=== PATIENT | female | born 1960 | race Caucasian/White ===

== ENCOUNTER 2017-09-19 16:20 | Emergency (ER) | payer OTHER ==
[~2017-09-19] VITALS: Ht 154.9 cm; Wt 89.1 kg
[~2017-09-19 16:20] MED LIST: FENO145T PO; GEMF600T3 PO
[2017-09-19] MEDS ORDERED: SODIUM CHLORIDE 0.9% 1,000 ML IV ONE (16:38)
[2017-09-19 17:04] LABS: EOSINOPHILS # (AUTO) 0.04 K/uL (0.00-0.70); EOSINOPHILS % (AUTO) 0.53 % (1.0-6.0); HEMATOCRIT 38.6 % (36-46); HEMOGLOBIN 12.9 g/dL (12.0-16.0); LYMPHOCYTES # (AUTO) 1.3 K/uL (1.0-4.8); LYMPHOCYTES % (AUTO) 18.7 % (22.0-44.0); MEAN CORPUSCULAR HEMOGLOBIN 29.5 pg (26.0-34.0); MEAN CORPUSCULAR HGB CONC 33.4 G/dL (31.0-37.0); MEAN CORPUSCULAR VOLUME 88 fL (80-100); MONOCYTES # (AUTO) 0.4 K/uL (0.1-1.0); MONOCYTES % (AUTO) 6.3 % (2.0-9.0); NEUTROPHILS % (AUTO) 74.4 % (40.0-70.0); PLATELET COUNT (AUTO) 146 K/uL (150-450); RED BLOOD CELL COUNT(AUTO) 4.36 MIL/uL (4.00-5.20); RED CELL DISTRIBUTION WIDTH 14.1 % (11.5-14.5); WHITE BLOOD COUNT (AUTO) 6.7 K/uL (4.5-11.0)
[2017-09-19 17:15] LABS: ANION GAP 9 mmol/L (8-16); CALCIUM, TOTAL 8.7 mg/dL (8.8-10.5); CARBON DIOXIDE 28 mmol/L (22-29); CHLORIDE 103 mmol/L (98-107); CREATININE 0.88 mg/dL (0.60-1.30); GLOMERULAR FILTR. RATE CALC > 60 mL/min (>60); POTASSIUM 4.1 mmol/L (3.5-5.1); SODIUM SERUM 140 mmol/L (136-145); UREA NITROGEN, BLOOD 11 mg/dL (7-18)
[2017-09-19 17:41] LABS: ALANINE AMINOTRANSFERASE 65 U/L (12-78); ALBUMIN 3.6 g/dL (3.4-5.0); ASPARTATE AMINOTRANSFERASE 82 U/L (15-37); BILIRUBIN,TOTAL 0.5 mg/dL (0.1-1.0); CREATINE KINASE MB < 0.5 ng/mL (0-5); CREATINE KINASE, TOTAL 95 U/L (26-192); TOTAL PROTEIN, SERUM 6.7 g/dL (6.4-8.2)
[2017-09-19 18:11] LABS: GLUCOSE, URINE (UA) NEGATIVE (NEGATIVE); KETONES,URINE TRACE mg/dL (NEGATIVE); LEUKOCYTE ESTERASE ,URINE MODERATE (NEGATIVE); OCCULT BLOOD,URINE NEGATIVE (NEGATIVE); PROTEIN,URINE NEGATIVE (NEGATIVE)
[2017-09-19 18:25] LABS: ADD UA MICROSCOPIC YES; APPEARANCE,URINE SLIGHTLY CLOUDY (CLEAR); RBC,URINE None Seen /HPF (0-2); SQUAMOUS EPITHELIAL CELL,UR Moderate /LPF (None Seen)
[2017-09-19 19:30] VITALS: BP 124/80
[2017-10-14] MEDS ORDERED: HYDR25TA PO (11:56)
[2017-10-14] MEDS ORDERED: SIMV-261 PO (11:56)
[2017-10-14] MEDS ORDERED: METF850T2 PO (11:56)
[2017-10-14] MEDS ORDERED: LISI-660 PO (11:56)
[2017-10-14] MEDS ORDERED: OMEP20 PO (11:56)
[2017-10-14] MEDS ORDERED: ASPI81 PO (11:56)
[2017-10-14] MEDS ORDERED: GABA-531 PO (11:56)
[2017-10-21] MEDS ORDERED: HYDR-309 PO (09:48)
[2017-10-21] MEDS ORDERED: DSS100 PO (09:48)
== END 2017-09-19 20:09 | disposition home or self-care (01) ==
LOC: EMS 16:21
DX: K52.9 Noninfective gastroenteritis and colitis, unspecified (principal); E86.0 Dehydration; N39.0 Urinary tract infection, site not specified; E11.9 Type 2 diabetes mellitus without complications; I10 Essential (primary) hypertension; F17.210 Nicotine dependence, cigarettes, uncomplicated
CPT/HCPCS: 36415; 80053; 81001; 82550; 82553; 82962; 83690; 84484; 85025; 87077; 87086; 87186; 93005; 96360; 99285; J7030

== ENCOUNTER 2017-11-26 06:37 | Day surgery (SDC) | payer OTHER ==
[~2017-11-26] VITALS: Ht 160 cm; Wt 87.3 kg
[~2017-11-26 06:37] MED LIST changes: +ASPI81 PO; +CeFAZolin 2 GM/DEXTROSE 0 ML IV ONE; +DSS100 PO; -FENO145T PO; +GABA-531 PO; -GEMF600T3 PO; +HYDR-309 PO; +HYDR25TA PO; +METF850T2 PO; +OMEP20 PO; +RINGERS SOLUTION,LACTATED 1,000 ML IV ONE; +SIMV-261 PO
[2017-11-26] MEDS ORDERED: PROPOFOL 1% 20 ML VIAL IVP ONE (06:38)
[2017-11-26] MEDS ORDERED: LIDOCAINE HCL/PF 2% 5 ML VIAL IM ONE (06:38)
[2017-11-26] MEDS ORDERED: FentaNYL CITRATE-PF 100 MCG/2 ML VIAL IVP ONE (06:38)
[2017-11-26] MEDS ORDERED: MIDAZOLAM HCL 2 MG/2 ML VIAL IVP ONE (06:38)
[2017-11-26] MEDS ORDERED: RINGERS SOLUTION,LACTATED 1,000 ML IV ONE (07:00)
[2017-11-26] MEDS ORDERED: CeFAZolin 2 GM/DEXTROSE 50 ML IV ONE (07:00)
[2017-11-26 07:23] LABS: GLUCOMETER DEV NAME(LOC) SDS 5; GLUCOSE,POINT OF CARE 132 MG/DL (70-110)
[2017-11-26] MEDS ORDERED: FentaNYL CITRATE-PF 100 MCG/2 ML VIAL ONE (09:42)
[2017-11-26] MEDS ORDERED: MEPERIDINE-PF 25 MG/ML SYRINGE IVP PRN (09:45)
[2017-11-26] MEDS ORDERED: FentaNYL CITRATE-PF 100 MCG/2 ML VIAL IVP PRN (09:45)
[2017-11-26] MEDS ORDERED: OxyCODONE HCL/ACETAMINOPHEN 5-325 MG TABLET PO STA (10:18)
[2017-11-26] MEDS ORDERED: OxyCODONE HCL/ACETAMINOPHEN 5-325 MG TABLET ONE (10:25)
== END 2017-11-26 11:25 | disposition home or self-care (01) ==
LOC: SURGERY 06:37
PROVIDERS: ATTEND Orthopaedic Surgery
DX: M25.661 Stiffness of right knee, not elsewhere classified (principal); E66.3 Overweight; F41.9 Anxiety disorder, unspecified; K21.9 Gastro-esophageal reflux disease without esophagitis; E78.00 Pure hypercholesterolemia, unspecified; E11.9 Type 2 diabetes mellitus without complications; I10 Essential (primary) hypertension; M17.11 Unilateral primary osteoarthritis, right knee; Z96.651 Presence of right artificial knee joint; Z79.84 Long term (current) use of oral hypoglycemic drugs; Z79.82 Long term (current) use of aspirin; Z79.899 Other long term (current) drug therapy; Z87.891 Personal history of nicotine dependence; Z91.013 Allergy to seafood; Z68.34 Body mass index [BMI] 34.0-34.9, adult; Z98.890 Other specified postprocedural states
CPT/HCPCS: 27570; 82962; 93005; J2175; J2250; J2704; J3010; J3490; J7120; J0690

== ENCOUNTER 2019-11-13 12:22 | Emergency (ER) | payer MEDICAID, OTHER ==
[~2019-11-13] VITALS: Ht 170.2 cm; Wt 77.3 kg
[~2019-11-13 12:22] MED LIST changes: +ASPI-728 PO; -ASPI81 PO; -CeFAZolin 2 GM/DEXTROSE 0 ML IV ONE; +HYDR-1475 PO; -HYDR25TA PO; +METF-445 PO; -METF850T2 PO; -RINGERS SOLUTION,LACTATED 1,000 ML IV ONE
[2019-11-13] MEDS ORDERED: LORazepam 1 MG TABLET PO ONE (14:30)
[2019-11-13 15:38] LABS: APPEARANCE,URINE CLEAR (CLEAR); BILIRUBIN,URINE NEGATIVE (NEGATIVE); GLUCOSE, URINE (UA) NEGATIVE (NEGATIVE); KETONES,URINE NEGATIVE (NEGATIVE); LEUKOCYTE ESTERASE ,URINE NEGATIVE (NEGATIVE); NITRATE,URINE NEGATIVE (NEGATIVE); OCCULT BLOOD,URINE NEGATIVE (NEGATIVE); PROTEIN,URINE NEGATIVE (NEGATIVE); UROBILINOGEN,URINE 0.2 mg/dL (<=1.0)
[2019-11-13 16:17] LABS: BASOPHILS % (AUTO) 0.3 % (0.0-2.0); EOSINOPHILS % (AUTO) 1.6 % (1.0-6.0); HEMATOCRIT 33.5 % (36-46); HEMOGLOBIN 10.3 g/dL (12.0-16.0); LYMPHOCYTES # (AUTO) 3.3 K/uL (1.0-4.8); LYMPHOCYTES % (AUTO) 41.7 % (22.0-44.0); MEAN CORPUSCULAR HEMOGLOBIN 22.9 pg (26.0-34.0); MEAN CORPUSCULAR HGB CONC 30.7 G/dL (31.0-37.0); MEAN CORPUSCULAR VOLUME 75 fL (80-100); MONOCYTES # (AUTO) 0.5 K/uL (0.1-1.0); MONOCYTES % (AUTO) 6.5 % (2.0-9.0); NEUTROPHILS # (AUTO) 3.9 K/uL (1.8-7.7); NEUTROPHILS % (AUTO) 49.9 % (40.0-70.0); PLATELET COUNT (AUTO) 265 K/uL (150-450); RED BLOOD CELL COUNT(AUTO) 4.49 MIL/uL (4.00-5.20); RED CELL DISTRIBUTION WIDTH 17.2 % (11.5-14.5)
[2019-11-13 16:27] LABS: ANION GAP 10 mmol/L (8-16); CALCIUM, TOTAL 8.9 mg/dL (8.8-10.5); CARBON DIOXIDE 25 mmol/L (22-29); CHLORIDE 109 mmol/L (98-107); CREATININE 0.68 mg/dL (0.60-1.30); GLOMERULAR FILTR. RATE CALC > 60 mL/min (>60); GLUCOSE,RANDOM 122 mg/dL (70-110); POTASSIUM 4.3 mmol/L (3.5-5.1); SODIUM SERUM 144 mmol/L (136-145); UREA NITROGEN, BLOOD 7 mg/dL (7-18)
[2019-11-13 16:39] LABS: PROTHROMBIN TIME 10.1 SEC (9.4-11.6)
[2019-11-13 16:51] LABS: ALANINE AMINOTRANSFERASE 27 U/L (12-78); ALBUMIN 3.8 g/dL (3.4-5.0); ALKALINE PHOSPHATASE 88 U/L (46-116); ASPARTATE AMINOTRANSFERASE 23 U/L (15-37); B-TYPE NATRIURETIC PEPTIDE 328 pg/mL (0-100); BILIRUBIN,TOTAL 0.4 mg/dL (0.1-1.0); CREATINE KINASE, TOTAL ONLY 109 U/L (26-192); TOTAL PROTEIN, SERUM 7.2 g/dL (6.4-8.2)
[2019-11-13 17:37] VITALS: BP 123/78
== END 2019-11-13 17:54 | disposition home or self-care (01) ==
LOC: EMS 12:24
DX: R05 Cough (principal); T44.995A Adverse effect of other drug primarily affecting the autonomic nervous system, initial encounter; F41.9 Anxiety disorder, unspecified; E78.00 Pure hypercholesterolemia, unspecified; I10 Essential (primary) hypertension; F17.210 Nicotine dependence, cigarettes, uncomplicated; Z79.84 Long term (current) use of oral hypoglycemic drugs; Z79.82 Long term (current) use of aspirin; Z79.899 Other long term (current) drug therapy; Z88.8 Allergy status to other drugs, medicaments and biological substances; Y92.89 Other specified places as the place of occurrence of the external cause
CPT/HCPCS: 93005

== ENCOUNTER 2021-12-24 10:27 | Emergency (ER) | payer MEDICAID, OTHER ==
[~2021-12-24] VITALS: Ht 154.9 cm; Wt 77.3 kg
[~2021-12-24 10:27] MED LIST changes: +ASPI-1450 PO; -ASPI-728 PO; +GABA-1181 PO; -GABA-531 PO; -HYDR-1475 PO; +HYDR25TA2 PO
[2021-12-24 10:45] VITALS: BP 75/51
[2021-12-24] MEDS ORDERED: LIDOCAINE 1% 10 ML VIAL PERC ONE (11:30)
[2021-12-24] MEDS ORDERED: POVIDONE-IODINE 10% 15 ML SOLUTION UD TP ONE (11:45)
[2021-12-24] MEDS ORDERED: AMOX1TAB16 PO (12:28)
== END 2021-12-24 12:57 | disposition home or self-care (01) ==
LOC: EMS 10:29
DX: S61.211A Laceration without foreign body of left index finger without damage to nail, initial encounter (principal); I10 Essential (primary) hypertension; E11.9 Type 2 diabetes mellitus without complications; K21.9 Gastro-esophageal reflux disease without esophagitis; F41.9 Anxiety disorder, unspecified; F17.210 Nicotine dependence, cigarettes, uncomplicated; Z91.013 Allergy to seafood; Z79.899 Other long term (current) drug therapy; Y04.1XXA Assault by human bite, initial encounter; Y93.89 Activity, other specified; Y92.89 Other specified places as the place of occurrence of the external cause; Y99.8 Other external cause status
CPT/HCPCS: 12002; 99283; J3490

== ENCOUNTER 2024-06-10 06:46 | Emergency (ER) | payer OTHER ==
[~2024-06-10] VITALS: Ht 154.9 cm; Wt 72.7 kg
[~2024-06-10 06:46] MED LIST changes: +AMOX-457 PO
[2024-06-10 06:55] VITALS: TEMP 98.9
[2024-06-10] MEDS: ALBUTEROL SULFATE 2.5 MG/0.5 ML NEB SOLUTION NEB ONE (07:16)
[2024-06-10] MEDS: IPRATROPIUM BROMIDE 0.5 MG/2.5 ML NEB SOLUTION NEB ONE (07:16)
[2024-06-10 07:18] VITALS: PULSE 103; RESP 26; O2SAT 97
[2024-06-10 07:20] VITALS: PULSE 103; RESP 26; O2SAT 97
[2024-06-10 07:30] VITALS: BP 134/75; O2SAT 99
[2024-06-10 07:33] VITALS: PULSE 104; RESP 14; O2SAT 100
[2024-06-10] MEDS: ONDANSETRON HCL 4 MG/2 ML VIAL IVP ONE (07:35)
[2024-06-10 07:42] LABS: BASOPHILS % (AUTO) 0.2 % (0.0-2.0); EOSINOPHILS % (AUTO) 1.2 % (1.0-6.0); HEMATOCRIT 31.2 % (36-46); HEMOGLOBIN 9.5 g/dL (12.0-16.0); LYMPHOCYTES # (AUTO) 2.3 K/uL (1.0-4.8); LYMPHOCYTES % (AUTO) 25.9 % (22.0-44.0); MEAN CORPUSCULAR HEMOGLOBIN 21.9 pg (26.0-34.0); MEAN CORPUSCULAR HGB CONC 30.4 G/dL (31.0-37.0); MEAN CORPUSCULAR VOLUME 72 fL (80-100); MONOCYTES # (AUTO) 0.6 K/uL (0.1-1.0); MONOCYTES % (AUTO) 7.4 % (2.0-9.0); NEUTROPHILS # (AUTO) 5.7 K/uL (1.8-7.7); NEUTROPHILS % (AUTO) 65.3 % (40.0-70.0); PLATELET COUNT (AUTO) 222 K/uL (150-450); RED BLOOD CELL COUNT(AUTO) 4.32 MIL/uL (4.00-5.20); WHITE BLOOD COUNT (AUTO) 8.8 K/uL (4.5-11.0)
[2024-06-10 07:55] LABS: CALCIUM, TOTAL 8.9 mg/dL (8.8-10.5); CREATININE 1.09 mg/dL (0.60-1.30); POTASSIUM 3.6 mmol/L (3.5-5.1)
[2024-06-10 08:00] LABS: TROPONIN I-HIGH SENSITIVITY 6 ng/L (<51)
[2024-06-10 08:01] LABS: ALBUMIN 3.7 g/dL (3.4-5.0); BILIRUBIN,DIRECT 0.2 mg/dL (0.00-0.20); BILIRUBIN,TOTAL 0.4 mg/dL (0.1-1.0); TOTAL PROTEIN, SERUM 7.2 g/dL (6.4-8.2)
[2024-06-10 08:09] LABS: COVID AG,FIA SOURCE NASAL SWAB
[2024-06-10 08:16] LABS: RBC MORPHOLOGY COMMENT ABNORMAL RBC MORPH
[2024-06-10 08:17] LABS: PLATELET MORPHOLOGY COMMENT LARGE PLTS PRESENT
[2024-06-10 08:52] LABS: SARS-COV2 (COVID) ANTIGEN,FIA Negative (Negative)
[2024-06-10 08:53] LABS: INFLUENZA TYPE A NEGATIVE FOR TYPE A (NEGATIVE); INFLUENZA TYPE B NEGATIVE FOR TYPE B (NEGATIVE)
[2024-06-10 09:12] LABS: APPEARANCE,URINE CLEAR (CLEAR); BILIRUBIN,URINE NEGATIVE (NEGATIVE); COLOR,URINE YELLOW (YELLOW); GLUCOSE, URINE (UA) NEGATIVE (NEGATIVE); KETONES,URINE NEGATIVE (NEGATIVE); LEUKOCYTE ESTERASE ,URINE LARGE (NEGATIVE); NITRATE,URINE NEGATIVE (NEGATIVE); OCCULT BLOOD,URINE NEGATIVE (NEGATIVE); PH,URINE 5.5 (5.0-8.0); PROTEIN,URINE TRACE mg/dL (NEGATIVE); SPECIFIC GRAVITIY, URINE 1.023 (1.003-1.030); UROBILINOGEN,URINE <=1.0 mg/dL (<=1.0)
[2024-06-10 10:07] LABS: BACTERIA,URINE Many /HPF (None Seen); RBC,URINE 0-2 /HPF (0-2)
[2024-06-10 10:08] LABS: SQUAMOUS EPITHELIAL CELL,UR Moderate /LPF (None Seen)
[2024-06-10 11:01] LABS: TROPONIN I-HIGH SENSITIVITY 6 ng/L (<51)
[2024-06-10 11:35] VITALS: PULSE 98; RESP 16; O2SAT 97
[2024-06-10] MEDS: ALBUTEROL SULFATE HFA 90 MCG/PUFF 8 GM INHALER IH ONE (11:35)
[2024-06-10] MEDS: CefTRIAXone 1 GM/DEXTROSE 50 ML IV ONE (11:51)
[2024-06-10] MEDS ORDERED: ALBU18HF12 IH (12:15)
[2024-06-10] MEDS ORDERED: CEPH-558 PO (12:15)
== END 2024-06-10 12:36 | disposition home or self-care (01) ==
LOC: EMS 06:47
DX: J45.901 Unspecified asthma with (acute) exacerbation (principal); N39.0 Urinary tract infection, site not specified; F41.9 Anxiety disorder, unspecified; F17.210 Nicotine dependence, cigarettes, uncomplicated; K21.9 Gastro-esophageal reflux disease without esophagitis; I10 Essential (primary) hypertension; E11.9 Type 2 diabetes mellitus without complications; Z88.6 Allergy status to analgesic agent; Z91.013 Allergy to seafood; Z20.822 Contact with and (suspected) exposure to COVID-19
CPT/HCPCS: 99285; 96365; 71045; 99406; 87426; 80048; 80076; 81001; 83690; 83880; 84484; 85025; 87804; 36415; 87086; 87186; 94640; 82962; 93005; J0696; J2405; J3535; J7613

== ENCOUNTER 2025-09-04 20:00 | Emergency (ER) | payer OTHER ==
[~2025-09-04] VITALS: Ht 154.9 cm; Wt 72.7 kg
[~2025-09-04 20:00] MED LIST changes: +ALBU18HF12 IH; +CEPH-558 PO; +OMEP-148 PO; -OMEP20 PO
[2025-09-04 20:08] VITALS: BP 149/81; PULSE 110; RESP 18; TEMP 98.2; O2SAT 98
== END 2025-09-04 22:32 | disposition left against medical advice (07) ==
LOC: EMS 20:00
DX: M54.50 Low back pain, unspecified (principal); Z53.21 Procedure and treatment not carried out due to patient leaving prior to being seen by health care provider
CPT/HCPCS: 82962; 99281